=== PATIENT | male | born 1970 | race Caucasian/White ===

== ENCOUNTER 2025-04-21 10:37 | Emergency (ER) | payer OTHER, SELFPAY ==
[2025-04-21] VITALS (17 sets, daily range): BP systolic 133–184; BP diastolic 84–125; PULSE 83–113; RESP 16–32; TEMP 36.9; O2SAT 95–100; BMI 26.8
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
[2025-04-21 11:01] LABS: Add Manual Diff / Slide Review NO; Hematocrit 40.4 % (41-53); Hemoglobin 14.1 g/dL (13.5-17.5); Lymphocytes Absolute Auto 1500 /uL (1100-4500); Mean Corpuscular HGB Conc 34.9 % (30-36); Mean Corpuscular Hemoglobin 31.1 PG (26-34); Mean Corpuscular Volume 89.1 fL (80-100); Platelet Count 410 X10^3/uL (150-400)
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
[2025-04-21] MEDS: SODIUM CHLORIDE 0.9% 1,000 ML 1000 ML IV (11:12)
[2025-04-21 11:15] LABS: INR 1.0 (0.9-1.3); Prothrombin Time 11.0 SECONDS (9.4-12.5)
[2025-04-21 11:17] LABS: PTT Partial Thromboplastin Tim 28 SECONDS (25.1-36.5)
[2025-04-21 11:18] LABS: Alanine Aminotransferase 33 IU/L (<50); Albumin 4.4 g/dL (3.5-5.0); Albumin Globulin Ratio 1.4 (1.0-2.8); Alkaline Phosphatase 95 U/L (38-126); Blood Urea Nitrogen 16 mg/dL (9-20); Calcium 8.9 mg/dL (8.4-10.2); Carbon Dioxide 20 mmol/L (22-32); Chloride 106 mmol/L (98-107); Creatine Kinase 548 U/L (55-170); Estimated Glomerular Filt Rate > 60 mL/min (>60); Globulin 3.2 g/dL (1.7-4.1); Glucose 106 mg/dL (70-99); HEMOLYSIS 45 (0-50); Lipase 247 U/L (23-300); Magnesium 1.6 mg/dL (1.6-2.3); Potassium 3.1 mmol/L (3.4-5.1); Sodium 138 mmol/L (137-145); Total Protein 7.6 g/dL (6.3-8.2)
--- NOTE | 2025-04-21 11:19 | ED_ITS ---
<Statement entered by Dex Jauregui, DO - 04/21/25 18:23> Co-sign statement: I was available for consultation during this patient's emergency department visit. This chart is being signed by myself for administrative purposes only. I do not have direct contact with this patient during this visit. They were seen independently by the APC. HPI - Chest Pain <Tasha Villa PA-C - Last Filed: 04/21/25 12:12> General Chief Complaint: Chest Pain Stated Complaint: Chest pain Time Seen by Provider: 04/21/25 10:49 History of Present Illness HPI narrative: Mr. Holden is a 54-year-old male with a reported history of PTSD who presents to the emergency department by himself, acutely agitated, screaming, reporting chest pain since 3:00 a.m. Patient states he is supposed to take Seroquel but has not taken it in a few days. And difficult to obtain a clear history as patient is extremely agitated, screaming ?I need a sedative. Patient is willing to communicate with myself, nurse, without physical violence. He is noted to have significant bruising on his flanks, denies any trauma states that maybe he fell. He is denying any drug or alcohol use at this time. Denies any medication allergies or surgeries. Denies blood thinners. Denies head trauma. Poor historian. Oxygen is 100% on room air, he is tachycardic at 111, elevated blood pressure, normal temperature. After pt calmed down, he Reports social ETOH, hx drug use, clean many years. Related Data Home Medications ?Medication ?Instructions ?Recorded ?Confirmed quetiapine 50 mg tablet mg PO 04/21/25 trazodone 50 mg tablet mg PO 04/21/25 Previous Rx's ?Medication ?Instructions ?Recorded diclofenac sodium 75 mg 75 mg PO BID PRN pain #30 ta bs 04/21/25 tablet,delayed release Allergies Allergy/AdvReac Type Severity Reaction Status Date / Time No Known Drug Allergies Allergy Verified 04/21/25 12:23 Review of Systems <Tasha Villa PA-C - Last Filed: 04/21/25 12:12> Review of Systems ROS Unobtainable: All systems reviewed & are unremarkable except as noted in HPI and below Exam <Tasha Villa PA-C - Last Filed: 04/21/25 12:12> Narrative Exam Narrative: GENERAL: 54 year old patient appears stated age. Acutely agitated, screaming, lying in stretcher, rolling [id number]. Once given ativan, he is calm and cooperative and answering questions appropriately. HEAD: Atraumatic. Normocephalic. EYES: PERRL. No scleral icterus. No injection or drainage. ENT: Nose without bleeding, purulent drainage. Airway patent. NECK: Trachea midline. Cervical ROM intact. No midline cervical tenderness. CARDIOVASCULAR: Increased rate and regular rhythm. RESPIRATORY: ?Nonlabored respirations. ?Speaking in clear, full sentences. ?Clear to auscultation. Breath sounds equal bilaterally. No wheezes, rales, or rhonchi. ? GASTROINTESTINAL: Abdomen soft, non-tender, nondistended. Significant ecchymosis R posterior flank EXTREMITIES: NoLE edema. 2+ BL radial pulse BACK: R paralumbar / flank bruising NEURO: Alert and oriented, able to answer questions after ativan. No facial asymmetry. ?Moves all 4 extremities appropriately. SKIN: Various bruises on trunk, no open wounds Initial Vital Signs Initial Vital Signs: Vital Signs Pulse Rate 101 H 04/21/25 10:46 Respiratory Rate 30 H 04/21/25 10:46 Pulse Oximetry 100 04/21/25 10:46 <Dex Jauregui DO - Last Filed: 04/21/25 17:18> Initial Vital Signs Initial Vital Signs: Vital Signs Pulse Rate 101 H 04/21/25 10:46 Respiratory Rate 30 H 04/21/25 10:46 Pulse Oximetry 100 04/21/25 10:46 Course <Tasha Villa PA-C - Last Filed: 04/21/25 12:12> Orders Ordered: ED Orders 04/21/25 10:48 EKG-12 Lead Stat 04/21/25 10:50 Acetaminophen Stat Complete Blood Count AUTO DIFF Stat Comprehensive Metabolic Panel Stat Ethanol (ETOH) Stat Lipase Stat Magnesium Stat NT-proBNP (BNP-Adult 18+) Stat PTT Partial Thromboplastin Butch Stat Prothrombin Time INR Stat Salicylate Stat TSH w/ Reflex to FT4 Stat Troponin & CK Cardiac Panel Stat 04/21/25 10:53 Consult to CANINE ENFORCEMENT OFFICER - Climatologist Stat 04/21/25 11:31 CT Trauma Chest Abdomen Pelvis Stat CT cervical spine wo con Stat CT head/brain wo con Stat 04/21/25 11:37 Ammonia (NH3) Stat 04/21/25 12:52 Troponin I Stat 04/21/25 15:27 Urine Drug Screen, Rapid Stat Discontinued Medications Sodium Chloride (Normal Saline 0.9%) 1,000 mls @ 1,000 mls/hr IV BOLUS ONE Stop: 04/21/25 12:08 Last Infusion: 04/21/25 12:22 Dose: Infused Documented By: RLValerie Admin: 04/21/25 11:12 Dose: 1,000 mls/hr Documented By: RLValerie Lorazepam (Lorazepam 2 Mg/Ml Inj) 2 mg IV NOW ONE Stop: 04/21/25 11:11 Last Admin: 04/21/25 11:15 Dose: 2 mg Documented By: MIGUEL Potassium Chloride (Potassium Chloride 20 Meq Tab) 40 meq PO NOW ONE Stop: 04/21/25 11:40 Last Admin: 04/21/25 16:34 Dose: 40 meq Documented By: MIGUEL Quetiapine Fumarate (Quetiapine 25 Mg Tablet) 50 mg PO NOW ONE Stop: 04/21/25 16:15 Last Admin: 04/21/25 16:35 Dose: 50 mg Documented By: MIGUEL Vital Signs Vital signs: Vital Signs - 8 hr 04/21/25 10:46 04/21/25 10:49 04/21/25 11:00 Temperature 98.4 F Pulse Rate 101 H 111 H 109 H Respiratory Rate 30 H 20 32 H Blood Pressure 169/125 H Pulse Oximetry 100 97 100 Oxygen Delivery Method Room Air 04/21/25 11:20 04/21/25 11:20 04/21/25 11:30 Temperature Pulse Rate 85 83 Respiratory Rate 16 20 Blood Pressure 159/87 H Pulse Oximetry 100 99 Oxygen Delivery Method 04/21/25 11:30 04/21/25 12:00 04/21/25 12:00 Temperature Pulse Rate 90 Respiratory Rate 19 Blood Pressure 133/84 174/91 H Pulse Oximetry 97 Oxygen Delivery Method 04/21/25 12:30 04/21/25 12:30 04/21/25 13:00 Temperature Pulse Rate 87 86 Respiratory Rate 19 22 Blood Pressure 151/85 H Pulse Oximetry 97 99 Oxygen Delivery Method 04/21/25 13:00 04/21/25 13:30 04/21/25 13:30 Temperature Pulse Rate 86 Respiratory Rate 20 Blood Pressure 158/98 H 173/97 H Pulse Oximetry 97 Oxygen Delivery Method 04/21/25 14:00 04/21/25 14:00 04/21/25 14:30 Temperature Pulse Rate 89 Respiratory Rate 22 Blood Pressure 156/89 H 173/99 H Pulse Oximetry 96 Oxygen Delivery Method 04/21/25 14:30 04/21/25 14:53 04/21/25 14:53 Temperature Pulse Rate 104 H 108 H Respiratory Rate 22 26 H Blood Pressure 180/111 H Pulse Oximetry 98 98 Oxygen Delivery Method 04/21/25 15:00 04/21/25 15:00 04/21/25 15:30 Temperature Pulse Rate 108 H 104 H Respiratory Rate 17 19 Blood Pressure 184/112 H Pulse Oximetry 98 95 Oxygen Delivery Method Room Air 04/21/25 15:30 Temperature Pulse Rate Respiratory Rate Blood Pressure 171/104 H Pulse Oximetry Oxygen Delivery Method <Dex Jauregui, DO - Last Filed: 04/21/25 17:18> Orders Ordered: ED Orders 04/21/25 10:48 EKG-12 Lead Stat 04/21/25 10:50 Acetaminophen Stat Complete Blood Count AUTO DIFF Stat Comprehensive Metabolic Panel Stat Ethanol (ETOH) Stat Lipase Stat Magnesium Stat NT-proBNP (BNP-Adult 18+) Stat PTT Partial Thromboplastin Butch Stat Prothrombin Time INR Stat Salicylate Stat TSH w/ Reflex to FT4 Stat Troponin & CK Cardiac Panel Stat 04/21/25 10:53 Consult to CANINE ENFORCEMENT OFFICER - Climatologist Stat 04/21/25 11:31 CT Trauma Chest Abdomen Pelvis Stat CT cervical spine wo con Stat CT head/brain wo con Stat 04/21/25 11:37 Ammonia (NH3) Stat 04/21/25 12:52 Troponin I Stat 04/21/25 15:27 Urine Drug Screen, Rapid Stat Discontinued Medications Sodium Chloride (Normal Saline 0.9%) 1,000 mls @ 1,000 mls/hr IV BOLUS ONE Stop: 04/21/25 12:08 Last Infusion: 04/21/25 12:22 Dose: Infused Documented By: Admin: 04/21/25 11:12 Dose: 1,000 mls/hr Documented By: MIGUEL Lorazepam (Lorazepam 2 Mg/Ml Inj) 2 mg IV NOW ONE Stop: 04/21/25 11:11 Last Admin: 04/21/25 11:15 Dose: 2 mg Documented By: MIGUEL Potassium Chloride (Potassium Chloride 20 Meq Tab) 40 meq PO NOW ONE Stop: 04/21/25 11:40 Last Admin: 04/21/25 16:34 Dose: 40 meq Documented By: MIGUEL Quetiapine Fumarate (Quetiapine 25 Mg Tablet) 50 mg PO NOW ONE Stop: 04/21/25 16:15 Last Admin: 04/21/25 16:35 Dose: 50 mg Documented By: MIGUEL Vital Signs Vital signs: Vital Signs - 8 hr 04/21/25 10:46 04/21/25 10:49 04/21/25 11:00 Temperature 98.4 F Pulse Rate 101 H 111 H 109 H Respiratory Rate 30 H 20 32 H Blood Pressure 169/125 H Pulse Oximetry 100 97 100 Oxygen Delivery Method Room Air 04/21/25 11:20 04/21/25 11:20 04/21/25 11:30 Temperature Pulse Rate 85 83 Respiratory Rate 16 20 Blood Pressure 159/87 H Pulse Oximetry 100 99 Oxygen Delivery Method 04/21/25 11:30 04/21/25 12:00 04/21/25 12:00 Temperature Pulse Rate 90 Respiratory Rate 19 Blood Pressure 133/84 174/91 H Pulse Oximetry 97 Oxygen Delivery Method 04/21/25 12:30 04/21/25 12:30 04/21/25 13:00 Temperature Pulse Rate 87 86 Respiratory Rate 19 22 Blood Pressure 151/85 H Pulse Oximetry 97 99 Oxygen Delivery Method 04/21/25 13:00 04/21/25 13:30 04/21/25 13:30 Temperature Pulse Rate 86 Respiratory Rate 20 Blood Pressure 158/98 H 173/97 H Pulse Oximetry 97 Oxygen Delivery Method 04/21/25 14:00 04/21/25 14:00 04/21/25 14:30 Temperature Pulse Rate 89 Respiratory Rate 22 Blood Pressure 156/89 H 173/99 H Pulse Oximetry 96 Oxygen Delivery Method 04/21/25 14:30 04/21/25 14:53 04/21/25 14:53 Temperature Pulse Rate 104 H 108 H Respiratory Rate 22 26 H Blood Pressure 180/111 H Pulse Oximetry 98 98 Oxygen Delivery Method 04/21/25 15:00 04/21/25 15:00 04/21/25 15:30 Temperature Pulse Rate 108 H 104 H Respiratory Rate 17 19 Blood Pressure 184/112 H Pulse Oximetry 98 95 Oxygen Delivery Method Room Air 04/21/25 15:30 Temperature Pulse Rate Respiratory Rate Blood Pressure 171/104 H Pulse Oximetry Oxygen Delivery Method MDM - Chest Pain <Tasha Villa PA-C - Last Filed: 04/21/25 12:12> Medical Records Data Medical records narrative: None available for review Lab Data 04/21/25 10:50 04/21/25 10:50 Labs: Lab Results 04/21/25 04/21/25 04/21/25 Range/Units 10:50 11:37 12:52 WBC 9.0 (4.5-11.0) X10^3/uL RBC 4.53 (4.5-5.9) X10^6/uL Hgb 14.1 (13.5-17.5) g/dL Hct 40.4 L (41-53) % MCV 89.1 (80-100) fL MCH 31.1 (26-34) PG MCHC 34.9 (30-36) % RDW 13.5 (11.6-14.8) % Plt Count 410 H (150-400) X10^3/uL Neut % (Auto) 73.0 (50-75) % Lymph % (Auto) 16.8 L (25-40) % Anson % (Auto) 7.9 (3-14) % Eos % (Auto) 1.2 L (2-4) % Baso % (Auto) 1.1 (0-2) % Neut # (Auto) 6600 (4160-0210) /uL Lymph # (Auto) 1500 (3279-5307) /uL Anson # (Auto) 700 (0-900) /uL Eos # (Auto) 100 (0-450) /uL Baso # (Auto) 100 (0-100) /uL PT 11.0 (9.4-12.5) SECONDS INR 1.0 (0.9-1.3) APTT 28 (25.1-36.5) SECONDS Sodium 138 (137-145) mmol/L Potassium 3.1 L (3.4-5.1) mmol/L Chloride 106 (98-107) mmol/L Carbon Dioxide 20 L (22-32) mmol/L BUN 16 (9-20) mg/dL Creatinine 1.21 (0.66-1.25) mg/dL Estimated GFR > 60 (>60) mL/min BUN/Creatinine Ratio 13.2 (6-22) Glucose 106 H (70-99) mg/dL Calcium 8.9 (8.4-10.2) mg/dL Magnesium 1.6 (1.6-2.3) mg/dL Total Bilirubin 1.3 (0.2-1.3) mg/dL AST 46 (17-59) IU/L ALT 33 (<50) IU/L Alkaline Phosphatase 95 (38-126) U/L Ammonia < 9 L (9-30) umol/L Total Creatine Kinase 548 H (55-170) U/L Troponin I < 0.012 < 0.012 (0.01-0.034) ng/mL NT-Pro-B Natriuret Pep 164 H (<125) pg/mL Total Protein 7.6 (6.3-8.2) g/dL Albumin 4.4 (3.5-5.0) g/dL Globulin 3.2 (1.7-4.1) g/dL Albumin/Globulin Ratio 1.4 (1.0-2.8) Lipase 247 (23-300) U/L TSH 1.88 (0.47-4.68) uIU/mL Salicylates < 1.0 (<20) mg/dL U Opiates 300ng/mL cut (Negative) Ur Oxycodone Screen (Negative) Urine Methadone Screen (Negative) Acetaminophen < 10 (10-30) ug/mL Ur Barbiturates Screen (Negative) U Tricyclic Antidepress (Negative) Ur Phencyclidine Scrn (Negative) Ur Amphetamines Screen (Negative) U Methamphetamines Scrn (Negative) Ur MDMA Scrn (Ecstasy) (Negative) U Benzodiazepines Scrn (Negative) Urine Cocaine Screen (Negative) U Marijuana (THC) Screen (Negative) Urine pH (Normal) Urine Specific Clymer (Normal) Ethyl Alcohol < 10 (<10) mg/dL Ur Creatinine (Normal) 04/21/25 Range/Units 15:27 WBC (4.5-11.0) X10^3/uL RBC (4.5-5.9) X10^6/uL Hgb (13.5-17.5) g/dL Hct (41-53) % MCV (80-100) fL MCH (26-34) PG MCHC (30-36) % RDW (11.6-14.8) % Plt Count (150-400) X10^3/uL Neut % (Auto) (50-75) % Lymph % (Auto) (25-40) % Anson % (Auto) (3-14) % Eos % (Auto) (2-4) % Baso % (Auto) (0-2) % Neut # (Auto) (5020-0312) /uL Lymph # (Auto) (9215-4445) /uL Anson # (Auto) (0-900) /uL Eos # (Auto) (0-450) /uL Baso # (Auto) (0-100) /uL PT (9.4-12.5) SECONDS INR (0.9-1.3) APTT (25.1-36.5) SECONDS Sodium (137-145) mmol/L Potassium (3.4-5.1) mmol/L Chloride (98-107) mmol/L Carbon Dioxide (22-32) mmol/L BUN (9-20) mg/dL Creatinine (0.66-1.25) mg/dL Estimated GFR (>60) mL/min BUN/Creatinine Ratio (6-22) Glucose (70-99) mg/dL Calcium (8.4-10.2) mg/dL Magnesium (1.6-2.3) mg/dL Total Bilirubin (0.2-1.3) mg/dL AST (17-59) IU/L ALT (<50) IU/L Alkaline Phosphatase (38-126) U/L Ammonia (9-30) umol/L Total Creatine Kinase (55-170) U/L Troponin I (0.01-0.034) ng/mL NT-Pro-B Natriuret Pep (<125) pg/mL Total Protein (6.3-8.2) g/dL Albumin (3.5-5.0) g/dL Globulin (1.7-4.1) g/dL Albumin/Globulin Ratio (1.0-2.8) Lipase (23-300) U/L TSH (0.47-4.68) uIU/mL Salicylates (<20) mg/dL U Opiates 300ng/mL cut Negative (Negative) Ur Oxycodone Screen Negative (Negative) Urine Methadone Screen Negative (Negative) Acetaminophen (10-30) ug/mL Ur Barbiturates Screen Negative (Negative) U Tricyclic Antidepress Negative (Negative) Ur Phencyclidine Scrn Negative (Negative) Ur Amphetamines Screen Positive H (Negative) U Methamphetamines Scrn Positive H (Negative) Ur MDMA Scrn (Ecstasy) Negative (Negative) U Benzodiazepines Scrn Negative (Negative) Urine Cocaine Screen Negative (Negative) U Marijuana (THC) Screen Negative (Negative) Urine pH Normal (Normal) Urine Specific [place] Normal (Normal) Ethyl Alcohol (<10) mg/dL Ur Creatinine Normal (Normal) Urine Dip Bedside Urine Glucose Negative Bedside Urine Bilirubin - Negative Bedside Urine Ketone - Negative Urine Specific Clymer 1.010 Bedside Urine Occult Blood - Negative Bedside Urine pH 7.0 Bedside Urine Protein - Negative Bedside Urine Urobilinogen - Negative Bedside Urine Nitrite - Negative Bedside Urine Leukocytes - Negative Esterase ECG Data Interpretation: ECG review by attending, Dr. Jauregui. QTc slightly prolinged 489, rate 84 beats per minute, normal sinus rhythm, no axis deviation. MDM Narrative Medical decision making narrative: 54-year-old male with a reported history of PTSD who presents to the emergency department by himself, acutely agitated, screaming, reporting chest pain since 3:00 a.m. Differential diagnosis includes but is not limited to ACS/GA, pulmonary edema, hypertensive emergency, intoxication, overdose, psychosis, pneumonia, etc. On initial exam patient is extremely agitated but not violent, screaming that he is in pain and he needs a sedative, specific pain is substernal chest pain started around 3:00 a.m. Patient drove himself here from his home in [place], denies history of any cardiovascular risk factors in himself or his family, denies elevated cholesterol, blood thinner use, prior GA, prior surgery. Patient has multiple bruises on his trunk, is unsure what these are from, suspects that they were from falling getting out of his elevated bed to come to the ER today. No cervical spine tenderness,PERRL, lungs are clear to auscultation bilaterally on the chest wall. Case immediately discussed with the attending ED physician Dr. Jauregui, we agreed to initiate IV fluids and 2 mg of IV Ativan which helped the patient significantly and allowed him to calm down and provide a more clear history. Given patient is poor historian with multiple bruises, we will obtain CT head, cervical spine, chest abdomen and pelvis. Initial labs reveal normal WBC count 9.0, hemoglobin is 14.1, hematocrit slightly decreased 40.4. Platelet count slightly elevated 410. Normal coags. Normal sodium 138, decreased potassium at 3.1, magnesium 1.6, BUN 16, creatinine 1.21 negative ammonia. Slightly elevated creatinine kinase 548. Negative/undetectable troponin, we will repeat in 2 hours. Very slightly elevated BNP 164. Normal lipase 247. Normal TSH 1.88. Negative alcohol, acetaminophen, salicylates. Imaging and urine pending at this time. 1209: Transfer of care to Dr. Jauregui, Imaging studies and urine still pending. <Dex Jauregui, DO - Last Filed: 04/21/25 17:18> Lab Data Labs: Lab Results 04/21/25 04/21/25 04/21/25 Range/Units 10:50 11:37 12:52 WBC 9.0 (4.5-11.0) X10^3/uL RBC 4.53 (4.5-5.9) X10^6/uL Hgb 14.1 (13.5-17.5) g/dL Hct 40.4 L (41-53) % MCV 89.1 (80-100) fL MCH 31.1 (26-34) PG MCHC 34.9 (30-36) % RDW 13.5 (11.6-14.8) % Plt Count 410 H (150-400) X10^3/uL Neut % (Auto) 73.0 (50-75) % Lymph % (Auto) 16.8 L (25-40) % Anson % (Auto) 7.9 (3-14) % Eos % (Auto) 1.2 L (2-4) % Baso % (Auto) 1.1 (0-2) % Neut # (Auto) 6600 (6574-7221) /uL Lymph # (Auto) 1500 (8688-1211) /uL Anson # (Auto) 700 (0-900) /uL Eos # (Auto) 100 (0-450) /uL Baso # (Auto) 100 (0-100) /uL PT 11.0 (9.4-12.5) SECONDS INR 1.0 (0.9-1.3) APTT 28 (25.1-36.5) SECONDS Sodium 138 (137-145) mmol/L Potassium 3.1 L (3.4-5.1) mmol/L Chloride 106 (98-107) mmol/L Carbon Dioxide 20 L (22-32) mmol/L BUN 16 (9-20) mg/dL Creatinine 1.21 (0.66-1.25) mg/dL Estimated GFR > 60 (>60) mL/min BUN/Creatinine Ratio 13.2 (6-22) Glucose 106 H (70-99) mg/dL Calcium 8.9 (8.4-10.2) mg/dL Magnesium 1.6 (1.6-2.3) mg/dL Total Bilirubin 1.3 (0.2-1.3) mg/dL AST 46 (17-59) IU/L ALT 33 (<50) IU/L Alkaline Phosphatase 95 (38-126) U/L Ammonia < 9 L (9-30) umol/L Total Creatine Kinase 548 H (55-170) U/L Troponin I < 0.012 < 0.012 (0.01-0.034) ng/mL NT-Pro-B Natriuret Pep 164 H (<125) pg/mL Total Protein 7.6 (6.3-8.2) g/dL Albumin 4.4 (3.5-5.0) g/dL Globulin 3.2 (1.7-4.1) g/dL Albumin/Globulin Ratio 1.4 (1.0-2.8) Lipase 247 (23-300) U/L TSH 1.88 (0.47-4.68) uIU/mL Salicylates < 1.0 (<20) mg/dL U Opiates 300ng/mL cut (Negative) Ur Oxycodone Screen (Negative) Urine Methadone Screen (Negative) Acetaminophen < 10 (10-30) ug/mL Ur Barbiturates Screen (Negative) U Tricyclic Antidepress (Negative) Ur Phencyclidine Scrn (Negative) Ur Amphetamines Screen (Negative) U Methamphetamines Scrn (Negative) Ur MDMA Scrn (Ecstasy) (Negative) U Benzodiazepines Scrn (Negative) Urine Cocaine Screen (Negative) U Marijuana (THC) Screen (Negative) Urine pH (Normal) Urine Specific Clymer (Normal) Ethyl Alcohol < 10 (<10) mg/dL Ur Creatinine (Normal) 04/21/25 Range/Units 15:27 WBC (4.5-11.0) X10^3/uL RBC (4.5-5.9) X10^6/uL Hgb (13.5-17.5) g/dL Hct (41-53) % MCV (80-100) fL MCH (26-34) PG MCHC (30-36) % RDW (11.6-14.8) % Plt Count (150-400) X10^3/uL Neut % (Auto) (50-75) % Lymph % (Auto) (25-40) % Anson % (Auto) (3-14) % Eos % (Auto) (2-4) % Baso % (Auto) (0-2) % Neut # (Auto) (4782-0242) /uL Lymph # (Auto) (7763-3614) /uL Anson # (Auto) (0-900) /uL Eos # (Auto) (0-450) /uL Baso # (Auto) (0-100) /uL PT (9.4-12.5) SECONDS INR (0.9-1.3) APTT (25.1-36.5) SECONDS Sodium (137-145) mmol/L Potassium (3.4-5.1) mmol/L Chloride (98-107) mmol/L Carbon Dioxide (22-32) mmol/L BUN (9-20) mg/dL Creatinine (0.66-1.25) mg/dL Estimated GFR (>60) mL/min BUN/Creatinine Ratio (6-22) Glucose (70-99) mg/dL Calcium (8.4-10.2) mg/dL Magnesium (1.6-2.3) mg/dL Total Bilirubin (0.2-1.3) mg/dL AST (17-59) IU/L ALT (<50) IU/L Alkaline Phosphatase (38-126) U/L Ammonia (9-30) umol/L Total Creatine Kinase (55-170) U/L Troponin I (0.01-0.034) ng/mL NT-Pro-B Natriuret Pep (<125) pg/mL Total Protein (6.3-8.2) g/dL Albumin (3.5-5.0) g/dL Globulin (1.7-4.1) g/dL Albumin/Globulin Ratio (1.0-2.8) Lipase (23-300) U/L TSH (0.47-4.68) uIU/mL Salicylates (<20) mg/dL U Opiates 300ng/mL cut Negative (Negative) Ur Oxycodone Screen Negative (Negative) Urine Methadone Screen Negative (Negative) Acetaminophen (10-30) ug/mL Ur Barbiturates Screen Negative (Negative) U Tricyclic Antidepress Negative (Negative) Ur Phencyclidine Scrn Negative (Negative) Ur Amphetamines Screen Positive H (Negative) U Methamphetamines Scrn Positive H (Negative) Ur MDMA Scrn (Ecstasy) Negative (Negative) U Benzodiazepines Scrn Negative (Negative) Urine Cocaine Screen Negative (Negative) U Marijuana (THC) Screen Negative (Negative) Urine pH Normal (Normal) Urine Specific Clymer Normal (Normal) Ethyl Alcohol (<10) mg/dL Ur Creatinine Normal (Normal) Urine Dip Bedside Urine Glucose Negative Bedside Urine Bilirubin - Negative Bedside Urine Ketone - Negative Urine Specific Clymer 1.010 Bedside Urine Occult Blood - Negative Bedside Urine pH 7.0 Bedside Urine Protein - Negative Bedside Urine Urobilinogen - Negative Bedside Urine Nitrite - Negative Bedside Urine Leukocytes - Negative Esterase Imaging Data CT scan - head: Radiologist's Impression: [address] [address] [address] Scan Report Signed Patient: Saul Holden MR#: [id number] : 1970 Acct:[id number] Age/Sex: 54 / M Date of Service: 04/21/25 Loc: ED Accession Number: [id number] Procedure: CT head/brain wo con Ordering Provider: Tasha Villa PA-C PROCEDURE: CT HEAD/BRAIN WO CON INDICATIONS: acutely agitated TECHNIQUE: Noncontrast 4.5 mm thick angled axial sections acquired from the foramen magnum to the vertex, with coronal and sagittal reformats. For radiation dose reduction, the following was used: automated exposure control, adjustment of mA and/or kV according to patient size. COMPARISON: None. FINDINGS: Image quality: Diagnostic. CSF spaces: Basal cisterns are patent. No extra-axial fluid collections. Ventricles are normal in size and shape. Brain: No midline shift. No intracranial mass effect or hemorrhage. [place]- white matter interface is normal. Skull and face: Calvarium and visualized facial bones are intact, without suspicious lesions. Sinuses: Visualized sinuses and mastoids are clear. IMPRESSION: No acute intracranial pathology. Dictated by: Agustin Pablo M.D. on 04/21/2025 at 12:19 Approved by: Agustin Pablo M.D. on 04/21/2025 at 12:20 CT - cervical spine: Radiologist's Impression: [place] [address] CT Scan Report Signed Patient: Saul Holden MR#: [id number] : 1970 Acct:[id number] Age/Sex: 54 / M Date of Service: 04/21/25 Loc: ED Accession Number: [id number] Procedure: CT head/brain wo con Ordering Provider: Tasha Villa PA-C PROCEDURE: CT HEAD/BRAIN WO CON INDICATIONS: acutely agitated TECHNIQUE: Noncontrast 4.5 mm thick angled axial sections acquired from the foramen magnum to the vertex, with coronal and sagittal reformats. For radiation dose reduction, the following was used: automated exposure control, adjustment of mA and/or kV according to patient size. COMPARISON: None. FINDINGS: Image quality: Diagnostic. CSF spaces: Basal cisterns are patent. No extra-axial fluid collections. Ventricles are normal in size and shape. Brain: No midline shift. No intracranial mass effect or hemorrhage. [place]- white matter interface is normal. Skull and face: Calvarium and visualized facial bones are intact, without suspicious lesions. Sinuses: Visualized sinuses and mastoids are clear. IMPRESSION: No acute intracranial pathology. Dictated by: Agustin Pablo M.D. on 04/21/2025 at 12:19 Approved by: Agustin Pablo M.D. on 04/21/2025 at 12:20 CT scan - chest: Radiologist's Impression: [place] [address] CT Scan Report Signed Patient: Saul Holden MR#: [id number] : 1970 Acct:[id number] Age/Sex: 54 / M Date of Service: 04/21/25 Loc: ED Accession Number: [id number] Procedure: CT Trauma Chest Abdomen Pelvis Ordering Provider: Tasha Villa PA-C PROCEDURE: CT TRAUMA CHEST ABDOMEN PELVIS INDICATIONS: chest PAIN TECHNIQUE: After the administration of intravenous contrast, 5 mm thick sections acquired from the lung apices to the symphysis. 2.5 mm thick coronal and sagittal reformats were acquired. Additional 7 mm thick coronal maximum intensity projection (MIP) reformats acquired through the lungs. Optional 10-minute delayed imaging may be performed from the kidneys to the bladder. For radiation dose reduction, the following was used: automated exposure control, adjustment of mA and/or kV according to patient size. COMPARISON: None. FINDINGS: Image quality: Diagnostic. CHEST: Lower Neck: No enlarged lymph nodes. Thyroid: No thyroid nodules which require sonographic evaluation. Axillae: No enlarged lymph nodes. Chest Wall: No subcutaneous gas. Lungs and Pleura: No pulmonary contusions or lacerations. No acute airspace opacities. No pneumothorax or pleural effusion. 7 mm right apical pulmonary nodule, image 98 of series 5. Mediastinum: No mediastinal hematomas. Heart size is normal. No pericardial effusion. Thoracic aorta and pulmonary arteries demonstrate normal size and enhancement. No mediastinal or hilar adenopathy. Esophagus is normal in caliber. No hiatal hernia. ABDOMEN: Liver: No lacerations. Gallbladder: No radiopaque gallstones or wall thickening. Biliary ducts: No biliary dilation. Pancreas: Homogenous enhancement. Spleen: Homogenous enhancement without laceration or hematoma. Adrenal Glands: Symmetric enhancement. Kidneys and Ureters: Symmetric enhancement. No hydronephrosis. No solid mass. No complex renal cystic lesion which requires follow up. Stomach and Bowel: Normal colonic caliber, without significant wall thickening. Peritoneum: No abnormal intraperitoneal fluid. No free air. Ventral Wall: No hernia. Abdominal Nodes: No retroperitoneal or mesenteric adenopathy by size criteria. Vessels: Aorta and inferior vena cava are normal in size. Incidental note made of the presence of high-grade right brachiocephalic vein stenosis with resultant right chest collaterals. Collaterals include epicardial collaterals. PELVIS: Pelvic Organs: Unremarkable. Bladder: Normal thickness. Pelvic Nodes: No enlarged lymph nodes. Miscellaneous: No inguinal hernias are seen. Bones: Subtle fractures of the anterior lateral right 7th rib, lateral right 8th rib, and posterior lateral right 10th rib. Old left 5th posterior lateral rib fracture. Diffuse osteopenia. No thoracic or lumbar compression fractures. No pelvic fractures. No rib fractures. IMPRESSION: 1. There are at least 3 right-sided rib fractures. There is no associated pneumothorax. 2. No other significant sequelae of acute trauma in the chest, abdomen, and pelvis. 3. 7 mm right apical pulmonary nodule. 4. Diffuse osteopenia. Comment: Recommend six-month CT follow-up for the right apical pulmonary nodule. [facility] Narrative Medical decision making narrative: 54-year-old male with a reported history of PTSD who presents to the emergency department by himself, acutely agitated, screaming, reporting chest pain since 3:00 a.m. Differential diagnosis includes but is not limited to ACS/GA, pulmonary edema, hypertensive emergency, intoxication, overdose, psychosis, pneumonia, etc. On initial exam patient is extremely agitated but not violent, screaming that he is in pain and he needs a sedative, specific pain is substernal chest pain started around 3:00 a.m. Patient drove himself here from his home in [place], denies history of any cardiovascular risk factors in himself or his family, denies elevated cholesterol, blood thinner use, prior GA, prior surgery. Patient has multiple bruises on his trunk, is unsure what these are from, suspects that they were from falling getting out of his elevated bed to come to the ER today. No cervical spine tenderness,PERRL, lungs are clear to auscultation bilaterally on the chest wall. Case immediately discussed with the attending ED physician Dr. Jauregui, we agreed to initiate IV fluids and 2 mg of IV Ativan which helped the patient significantly and allowed him to calm down and provide a more clear history. Given patient is poor historian with multiple bruises, we will obtain CT head, cervical spine, chest abdomen and pelvis. Initial labs reveal normal WBC count 9.0, hemoglobin is 14.1, hematocrit slightly decreased 40.4. Platelet count slightly elevated 410. Normal coags. Normal sodium 138, decreased potassium at 3.1, magnesium 1.6, BUN 16, creatinine 1.21 negative ammonia. Slightly elevated creatinine kinase 548. Negative/undetectable troponin, we will repeat in 2 hours. Very slightly elevated BNP 164. Normal lipase 247. Normal TSH 1.88. Negative alcohol, acetaminophen, salicylates. Imaging and urine pending at this time. 1209: Transfer of care to Dr. Jauregui, Imaging studies and urine still pending. All lab work vital signs nurse triage note medication list previous ER visits in all imaging studies reviewed. CT head and cervical spine showed no acute process. CT chest abdomen and pelvis showed 3 rib fracture on right side with no associated pneumothorax. Pt given ativan, potassium, seroquel here, potassium solution and Narcan rx. Potassium 3.1 glucose 106 troponin 2 sets negative CK 548 and BNP 164 UDS positive for methamphetamine and amphetamines. Differential diagnosis includes STEMI NSTEMI unstable angina guarding anxiety pneumothorax rib fracture liver laceration splenic laceration. Discharge Plan Departure Patient Disposition: Home Clinical Impression: Closed rib fracture Qualifiers: Encounter type: initial encounter Rib fracture type: multiple ribs Laterality: right Qualified Code(s): S22.41XA - Multiple fractures of ribs, right side, initial encounter for closed fracture Instructions: DI for Rib Fracture Activity Restrictions/Additional Instructions: Return with new or worsening symptoms. Take your medicine as directed. Follow up PCP 1-2 days for re-evaluation. Prescriptions: New diclofenac sodium 75 mg tablet,delayed release (DR/EC) 75 mg PO BID PRN (Reason: pain) Qty: 30 0RF No Action trazodone 50 mg tablet PO quetiapine 50 mg tablet PO Stand Alone Forms: Patient Portal/API
--- NOTE | 2025-04-21 11:24 | EKG_ITS ---
[address] [address] Test Date: 2025-04-21 Pat Name: Saul Holden Department: [facility] Room: Gender: Male Compensation Intern: : 1970 Requested By: Order Number: [id number] Reading MD: Dex Sanchez MD Measurements Intervals [place] Rate: 84 P: 60 CO: 148 QRS: 31 QRSD: 88 T: 39 QT: 414 QTc: 489 Interpretive Statements Normal sinus rhythm Prolonged QT Electronically Signed On 04-21-2025 13:38:38 PDT by Dex Sanchez MD
[2025-04-21 11:26] LABS: Acetaminophen < 10 ug/mL (10-30); Ethanol (ETOH) < 10 mg/dL (<10); Salicylate < 1.0 mg/dL (<20)
[2025-04-21 11:31] LABS: NT-proBNP (BNP-Adult 18+) 164 pg/mL (<125); Troponin I < 0.012 ng/mL (0.01-0.034)
--- NOTE | 2025-04-21 11:31 | DI.CT.S_ITS ---
PROCEDURE: CT TRAUMA CHEST ABDOMEN PELVIS INDICATIONS: chest PAIN TECHNIQUE: After the administration of intravenous contrast, 5 mm thick sections acquired from the lung apices to the symphysis. 2.5 mm thick coronal and sagittal reformats were acquired. Additional 7 mm thick coronal maximum intensity projection (MIP) reformats acquired through the lungs. Optional 10-minute delayed imaging may be performed from the kidneys to the bladder. For radiation dose reduction, the following was used: automated exposure control, adjustment of mA and/or kV according to patient size. COMPARISON: None. FINDINGS: Image quality: Diagnostic. CHEST: Lower Neck: No enlarged lymph nodes. Thyroid: No thyroid nodules which require sonographic evaluation. Axillae: No enlarged lymph nodes. Chest Wall: No subcutaneous gas. Lungs and Pleura: No pulmonary contusions or lacerations. No acute airspace opacities. No pneumothorax or pleural effusion. 7 mm right apical pulmonary nodule, image 98 of series 5. Mediastinum: No mediastinal hematomas. Heart size is normal. No pericardial effusion. Thoracic aorta and pulmonary arteries demonstrate normal size and enhancement. No mediastinal or hilar adenopathy. Esophagus is normal in caliber. No hiatal hernia. ABDOMEN: Liver: No lacerations. Gallbladder: No radiopaque gallstones or wall thickening. Biliary ducts: No biliary dilation. Pancreas: Homogenous enhancement. Spleen: Homogenous enhancement without laceration or hematoma. Adrenal Glands: Symmetric enhancement. Kidneys and Ureters: Symmetric enhancement. No hydronephrosis. No solid mass. No complex renal cystic lesion which requires follow up. Stomach and Bowel: Normal colonic caliber, without significant wall thickening. Peritoneum: No abnormal intraperitoneal fluid. No free air. Ventral Wall: No hernia. Abdominal Nodes: No retroperitoneal or mesenteric adenopathy by size criteria. Vessels: Aorta and inferior vena cava are normal in size. Incidental note made of the presence of high-grade right brachiocephalic vein stenosis with resultant right chest collaterals. Collaterals include epicardial collaterals. PELVIS: Pelvic Organs: Unremarkable. Bladder: Normal thickness. Pelvic Nodes: No enlarged lymph nodes. Miscellaneous: No inguinal hernias are seen. Bones: Subtle fractures of the anterior lateral right 7th rib, lateral right 8th rib, and posterior lateral right 10th rib. Old left 5th posterior lateral rib fracture. Diffuse osteopenia. No thoracic or lumbar compression fractures. No pelvic fractures. No rib fractures. IMPRESSION: 1. There are at least 3 right-sided rib fractures. There is no associated pneumothorax. 2. No other significant sequelae of acute trauma in the chest, abdomen, and pelvis. 3. 7 mm right apical pulmonary nodule. 4. Diffuse osteopenia. Comment: Recommend six-month CT follow-up for the right apical pulmonary nodule. Dictated by: Agustin Pablo M.D. on 04/21/2025 at 12:20 Approved by: Agustin Pablo M.D. on 04/21/2025 at 12:30
--- NOTE | 2025-04-21 11:31 | DI.CT.S_ITS ---
PROCEDURE: CT CERVICAL SPINE WO CON INDICATIONS: acutely agitated; poor historian; pain everywhere TECHNIQUE: Noncontrast 3 mm thick sections acquired from the skull base to the T4 level. Sagittal and coronal reformats were then constructed. For radiation dose reduction, the following was used: automated exposure control, adjustment of mA and/or kV according to patient size. COMPARISON: [facility], CT, CT HEAD/BRAIN WO CON, 04/21/2025, 11:46. [facility], CT, CT TRAUMA CHEST ABDOMEN PELVIS, 04/21/2025, 11:46. FINDINGS: Image quality: Excellent. Bones: No fractures or dislocations. Visualized superior ribs are intact. Soft tissues: Prevertebral soft tissues are normal in thickness. No paravertebral hematomas. No apical pneumothoraces. IMPRESSION: No displaced fracture or traumatic subluxation. Dictated by: Sridhar Collins M.D. on 04/21/2025 at 12:08 Approved by: Sridhar Collins M.D. on 04/21/2025 at 12:11
--- NOTE | 2025-04-21 11:31 | DI.CT.S_ITS ---
PROCEDURE: CT HEAD/BRAIN WO CON INDICATIONS: acutely agitated TECHNIQUE: Noncontrast 4.5 mm thick angled axial sections acquired from the foramen magnum to the vertex, with coronal and sagittal reformats. For radiation dose reduction, the following was used: automated exposure control, adjustment of mA and/or kV according to patient size. COMPARISON: None. FINDINGS: Image quality: Diagnostic. CSF spaces: Basal cisterns are patent. No extra-axial fluid collections. Ventricles are normal in size and shape. Brain: No midline shift. No intracranial mass effect or hemorrhage. [place]- white matter interface is normal. Skull and face: Calvarium and visualized facial bones are intact, without suspicious lesions. Sinuses: Visualized sinuses and mastoids are clear. IMPRESSION: No acute intracranial pathology. Dictated by: Agustin Pablo M.D. on 04/21/2025 at 12:19 Approved by: Agustin Pablo M.D. on 04/21/2025 at 12:20
[2025-04-21 11:56] LABS: TSH w/ Reflex to FT4 1.88 uIU/mL (0.47-4.68)
[2025-04-21 12:00] LABS: Ammonia (NH3) < 9 umol/L (9-30)
[2025-04-21 13:21] LABS: Troponin I < 0.012 ng/mL (0.01-0.034)
[2025-04-21 15:39] LABS: UR Morphine/Opiate cutoff 300 Negative (Negative); Ur Specific Gravity Normal (Normal); Urine MDMA Negative (Negative); Urine Methamphetamines Positive (Negative); Urine Tetrahydrocannabinol Negative (Negative); Urine Tricyclic Antidepressant Negative (Negative)
--- NOTE | 2025-04-21 16:30 | CM.SWNOTE ---
ED GLOVE PRINTER Assessment Note GLOVE PRINTER - Cold Type Artist Assessment GLOVE PRINTER/Cold Type Artist Assessment Time Spent with Patient Start date 04/21/25 Visit Start Time 14:15 End date 04/21/25 Visit End Time 14:35 Total time Care 25 minutes Management spent on patient visit-in minutes Mental Health Screening Include Onset, Duration, Intensity Presenting Problem Patient presents to the ED via private vehicle due to concern for chest pains, patient presented to the ED screaming reporting concern of pain, responding to internal stimulus, difficulty sitting still upon arrival, endorsing concern that someone is out to get him. Patient endorses concern for delusions, and presents with paranoia. Patient presents with significant bruising on his right side. Per report from patient, patient states that he feel out of bed several times. Precipitating Event( Per [facility] medical, patient has hx of presentation s) in the last several weeks at [facility] due to concern for psychosis, agitation, delusions and hallucinations. Patient was seen at [facility] yesterday and discharged to home. Patient endorses that he was trying to drive to [facility] today but he could not find the hospital, patient states he has been experiencing some concern about his safety at home due to concern for his delusions and paranoia, patient states that most of his delusions are surrounding his friends, family and acquaintances. Patient states that he does not trust his family right now. Patient endorses concern for his financial stability and feels stuck in his current situation. Patient states that he is prescribed seroquel and he has not taken his medication in about a week because he ran out of his medications. Patient Strengths Patient presented to the ED via private vehicle seeking help, patient presents as calm and cooperative with GLOVE PRINTER. Current Behavioral Patient denies current MH provider at this time. Per Health Provider(s) [facility] medical, patient was [place] [facility] [place] Facility, month. Provider, Ph. # Psych. Hx Mental Patient endorses hx of PTSD and delusions. Per [facility], patient has hx of Bipolar 1 Dependency Disorder, Borderline Personality, History of ETOH use, paranoia, and hx of Methamphetamine use. Patient endorses occasional ETOH use and denies current substance use, and endorses hx of substance use. Patient's toxicology screen is positive for Methamphetamine and Amphetamines. Patient states that his PCP SANDY Pardo in [place], [place] prescribes him Seroquel 50mg. Family Hx of Patient endorses hx of toxic relationships. Behavioral Abuse Psychiatric Patient denies hx of inpatient stays but states he Hospitalizations ( was at [facility] several times. date(s)/location) Psychosocial Patient is a 54 y/o male who resides in [place], [place]. information & Patient states he resides alone in his trailer [place] [employer] [place]. Patient denies any local supports, but states that his dad helps him with bills sometimes. School/Work Unemployed Legal Concerns Legal Matters - Patient endorses he has a pending battery charge in [facility], court date set for 05/20/25. Mental Status Orientation (Person/ A/Ox3 Place/Time) Stated Mood okay was having chest pains having delusions Affect (Congruent anxious, euthymic at times, flat affect. Upon arrival with Mood?) to ED patient presented elevated, irritable and anxious . Thought Content - Patient endorses concerns for paranoia and delusions Specify/Describe and states they his unsure what is real or not. Patient Obsessions, states that most of his delusions are regarding his Delusions, friends, family and acquaintances. Patient presents Hallucinations with internal stimulus and presents with twitching eyes and body twitching. Patient endorses that he hears voices on occasion and sees people. Upon arrival patient was talking to people that weren't there. Per RN, patient states that the devil was out to get him. Thought Processes ( thought blocking Logical-Coherent- Goal Directed- Detailed-Tangential- Circumstantial- Logical-Disorganized -Thought Blocking) Speech (Normal-Slow- slow to respond, pressured at times Wvujnsj-Rnufj-Rhnf- Loud-Pressured) Motor (Normal- excessive Nfecoqjan-Eygs-Yaxme ) Insight (Good-Fair- fair/limited Poor/Limited) Judgement (Good-Fair fair/limited -Poor/Limited) Impulse Control ( somewhat adequate. Patient presents with twitching Adequate-Impaired) movements and it is uncertain if these are voluntary or involuntary. Memory (Immediate- intact, not formally assessed Recent-Remote, Impaired-Intact) Concentration ( intact Intact-Impaired) Attention (Intact- intact Impaired) Behavior ( appropriate Appropriate- Inappropriate) Additional Comment Patient presents as cooperative, calm and communicative but presents with some distress. Risk Assessment Suicidal Ideation ( No Plan) Homicidal Ideation ( No Plan) Comment Patient denies SI and HI. Patient endorses hx of SI sometimes and states he attempted to overdose 7 weeks ago. Intervention Intervention GLOVE PRINTER enters room to meet with patient. Patient endorsed concerns that he was having chest pains and concern for delusions, patient presents responding to internal stimulus. Patient's toxicology is positive for Methamphetamine and Amphetamines. Patient states that he has not had access to his prescribed medication and not taken his Seroquel in about a week. Patient endorses some concern about returning home due to his delusions and states that he does not feel like he can seek support from his family. Patient presents with anxiety about discussing plan of care options. GLOVE PRINTER discusses voluntary inpatient hospitalization and patient endorses he is considering that option and wants to make the safest choice. Patient endorses concern returning to [facility] at this time. It is the opinion of this GLOVE PRINTER that patient would benefit from voluntary inpatient hospitalization for safety, crisis stabilization and medication management . GLOVE PRINTER reviews this with ED provider Dr. Jauregui, it is reported that patient is medically cleared. Plan RA Plan GLOVE PRINTER to continue to discuss plan of care with patient, GLOVE PRINTER likely to reach out to Inpatient hospitals for placement. ANIKA Villasenor
[2025-04-21] MEDS: POTASSIUM CHLORIDE 20 MEQ TAB 40 MEQ PO (16:34)
--- NOTE | 2025-04-21 17:24 | CM.SWNOTE ---
Addendum entered by Nieves Newell 04/21/25 17:51: correction: patient was discharged with rx for disclofenac sodium not seroquel. Patient recommended to follow up with PCP. ANIKA Villasenor Addendum entered by Nieves Newell 04/21/25 17:48: Records from [facility] were just received, it is reported that patient was detained at [facility] as RICK from 04/06/25 to 04/08/25. Upon that presentation to [facility] ED, patient presented via EMS and LE due to concern for patient's paranoia, delusions and concern that someone was choking him at home. ANIKA Villasenor Original Note: ED CHIEF RECORDIST Note ED provider meets with patient and discussions discharge options. Patient endorses plan to discharge to home, patient continues to present in distress. ED provider has cleared patient for discharge. CHIEF RECORDIST provides patient with resources for [facility] and crisis lines as well as contact information for [facility] in [facility] where patient resides. It is the opinion of this CHIEF RECORDIST that patient is safe for d/c upon medical clearance, patient is provided narcan and rx for prescribed seroquel. Plan: patient chose to d/c to home upon medical clearance, resources provided. ANIKA Villasenor
[2025-04-21] MEDS: NALOXONE 4 MG NASAL SPRAY MISC (17:25)
== END 2025-04-21 17:28 | disposition home or self-care (01) ==
PROVIDERS: Physician Assistant; Emergency Provider Family Medicine
DX: S22.41XA Multiple fractures of ribs, right side, initial encounter for closed fracture (principal); R45.1 Restlessness and agitation; I25.2 Old myocardial infarction
CPT/HCPCS: 36415; 70450; 71275; 72125; 74177; 80053; 80305; 80320; 80329; 81003; 82140; 82550; 83690; 83735; 83880; 84443; 84484; 85025; 85610; 85730; 93005; 96361; 96374; 99284; A9270; G0480; J2060; Q9967